=== PATIENT | male | born 1955 | race Caucasian/White ===

== ENCOUNTER 2019-09-06 22:19 | Emergency (ER) | payer MEDICARE ==
[~2019-09-06] VITALS: Ht 180.3 cm; Wt 99.8 kg
[2019-09-06] MEDS ORDERED: GABA300 (22:53)
[2019-09-06] MEDS ORDERED: MYCO250 (22:53)
[2019-09-06] MEDS ORDERED: TORSE20 (22:53)
[2019-09-06] MEDS ORDERED: TACR1 (22:53)
[2019-09-06] MEDS ORDERED: PRED5 (22:54)
[2019-09-06] MEDS ORDERED: FERSU300 (22:54)
[2019-09-06] MEDS ORDERED: WARF4 (22:54)
[2019-09-06] MEDS ORDERED: METO50ER (22:54)
[2019-09-06] MEDS ORDERED: ZOLP10 (22:54)
[2019-09-06] MEDS ORDERED: CLON1 (22:55)
[2019-09-06] MEDS ORDERED: TAMS.4ER (22:55)
[2019-09-06] MEDS ORDERED: INSULANPEN (22:55)
[2019-09-06] MEDS ORDERED: CEPH500 PO (22:57)
== END 2019-09-06 23:29 | disposition home or self-care (01) ==
LOC: ER 22:19
DX: S90.415A Abrasion, left lesser toe(s), initial encounter (principal); S90.425A Blister (nonthermal), left lesser toe(s), initial encounter; E11.621 Type 2 diabetes mellitus with foot ulcer; L97.529 Non-pressure chronic ulcer of other part of left foot with unspecified severity; E11.40 Type 2 diabetes mellitus with diabetic neuropathy, unspecified; Z88.8 Allergy status to other drugs, medicaments and biological substances; E11.9 Type 2 diabetes mellitus without complications; I10 Essential (primary) hypertension; Z86.711 Personal history of pulmonary embolism; Z86.718 Personal history of other venous thrombosis and embolism; Z89.422 Acquired absence of other left toe(s); X58.XXXA Exposure to other specified factors, initial encounter
CPT/HCPCS: 99283; A9270-GY

== ENCOUNTER 2019-09-09 14:32 | Emergency (ER) | payer MEDICARE ==
[~2019-09-09] VITALS: Ht 180.3 cm; Wt 99.8 kg
[~2019-09-09 14:32] MED LIST: CEPH500 PO; CLON1; FERSU300; GABA300; INSULANPEN; METO50ER; MYCO250; PRED5; TACR1; TAMS.4ER; TORSE20; WARF4; ZOLP10
[2019-09-09 15:25] LABS: BASOPHILS ABSOLUTE AUTO 0.03 K/mm3 (0.00-0.23); BASOPHILS PERCENT AUTO 1 % (0-2); EOSINOPHILS ABSOLUTE AUTO 0.14 K/mm3 (0.00-0.68); EOSINOPHILS PERCENT AUTO 3 % (0-6); Hematocrit 42.6 % (37.0-53.0); Hemoglobin 13.9 g/dL (13.5-17.5); IMMATURE GRAN ABSOLUTE AUTO 0.01 K/mm3 (0.00-0.10); IMMATURE GRAN PERCENT AUTO 0 % (0-1); LYMPHOCYTES ABSOLUTE AUTO 1.42 K/mm3 (0.84-5.20); LYMPHOCYTES PERCENT AUTO 27 % (21-46); MONOCYTES ABSOLUTE AUTO 0.68 K/mm3 (0.16-1.47); MONOCYTES PERCENT AUTO 13 % (4-13); Mean Corpuscular HGB 29.4 pg (26.0-34.0); Mean Corpuscular HGB Conc 32.6 g/dL (31.5-36.5); Mean Corpuscular Volume 90 fL (80-100); Mean Platelet Volume 10.8 fL (9.1-12.4); NEUTROPHILS ABSOLUTE AUTO 2.93 K/mm3 (1.96-9.15); NEUTROPHILS PERCENT AUTO 56 % (41-73); Platelet Count 128 K/mm3 (150-400); RDW Coefficient Variation 12.3 % (11.7-14.2); RDW Standard Deviation 40.4 fL (35.1-46.3); Red Blood Cell Count 4.73 M/mm3 (4.30-5.90); White Blood Cell Count 5.21 K/mm3 (4.00-11.30)
[2019-09-09 15:39] LABS: Albumin, Blood 3.6 g/dL (3.4-5.0); Albumin/Globulin Ratio 0.9 (0.8-1.8); Bilirubin, Total 0.8 mg/dL (0.1-1.0); Creatinine, Blood 1.29 mg/dL (0.60-1.20); Globulin, Blood 3.8 g/dL (2.2-4.0); Potassium, Blood 3.8 mmol/L (3.5-5.5); Total Protein, Blood 7.4 g/dL (6.4-8.2)
[2019-09-09 15:44] LABS: International Normalized Ratio 2.96; Prothrombin Time Results 29.8 Sec (9.7-11.5)
[2019-09-09] MEDS ORDERED: Bactrim Ds Tab1 EACH PO (18:02)
== END 2019-09-09 18:15 | disposition home or self-care (01) ==
LOC: ER 14:32
PROVIDERS: Physician Assistant
DX: L03.116 Cellulitis of left lower limb (principal); E11.9 Type 2 diabetes mellitus without complications; I10 Essential (primary) hypertension; Z88.8 Allergy status to other drugs, medicaments and biological substances; Z88.7 Allergy status to serum and vaccine; Z79.899 Other long term (current) drug therapy; Z79.01 Long term (current) use of anticoagulants; Z79.4 Long term (current) use of insulin; Z86.718 Personal history of other venous thrombosis and embolism; Z86.711 Personal history of pulmonary embolism
CPT/HCPCS: 10060; 36415; 73701; 80053; 83605; 84145; 85025; 85610; 85730; 99284-25; A9270-GY; Q9967

== ENCOUNTER 2020-02-28 14:04 | Emergency (ER) | payer MEDICARE ==
[~2020-02-28] VITALS: Ht 180.3 cm; Wt 105.2 kg
[~2020-02-28 14:04] MED LIST changes: +Bactrim Ds Tab1 EACH PO
[2020-02-28 15:25] LABS: BASOPHILS ABSOLUTE AUTO 0.02 K/mm3 (0.00-0.23); BASOPHILS PERCENT AUTO 0 % (0-2); EOSINOPHILS ABSOLUTE AUTO 0.04 K/mm3 (0.00-0.68); EOSINOPHILS PERCENT AUTO 0 % (0-6); Hematocrit 41.2 % (37.0-53.0); Hemoglobin 13.6 g/dL (13.5-17.5); IMMATURE GRAN ABSOLUTE AUTO 0.03 K/mm3 (0.00-0.10); IMMATURE GRAN PERCENT AUTO 0 % (0-1); LYMPHOCYTES ABSOLUTE AUTO 0.89 K/mm3 (0.84-5.20); LYMPHOCYTES PERCENT AUTO 9 % (21-46); MONOCYTES ABSOLUTE AUTO 0.98 K/mm3 (0.16-1.47); MONOCYTES PERCENT AUTO 10 % (4-13); Mean Corpuscular HGB 29.7 pg (26.0-34.0); Mean Corpuscular Volume 90 fL (80-100); Mean Platelet Volume 11.1 fL (9.1-12.4); NEUTROPHILS ABSOLUTE AUTO 8.16 K/mm3 (1.96-9.15); NEUTROPHILS PERCENT AUTO 81 % (41-73); Platelet Count 160 K/mm3 (150-400); RDW Coefficient Variation 12.1 % (11.7-14.2); RDW Standard Deviation 39.6 fL (35.1-46.3); Red Blood Cell Count 4.58 M/mm3 (4.30-5.90); White Blood Cell Count 10.12 K/mm3 (4.00-11.30)
[2020-02-28 15:41] LABS: Source, Urine Catheter
[2020-02-28 15:41] LABS: International Normalized Ratio 2.4; Prothrombin Time Results 24.4 Sec (9.7-11.5)
[2020-02-28 15:42] LABS: Albumin, Blood 3.5 g/dL (3.4-5.0); Albumin/Globulin Ratio 0.8 (0.8-1.8); Bilirubin, Total 1.6 mg/dL (0.1-1.0); Bun/Creatinine Ratio 23.4 (12.0-20.0); Calcium, Blood 9.4 mg/dL (8.5-10.1); Creatinine, Blood 1.41 mg/dL (0.60-1.20); Globulin, Blood 4.5 g/dL (2.2-4.0)
[2020-02-28 15:48] LABS: Bilirubin, Urine Neg (Neg); Blood, Urine 1+ (Neg); Glucose Qualitative, Urine 4+ (Neg); Ketones, Urine 1+ (Neg); Leukocyte Esterase, Urine Neg (Neg); Nitrite, Urine Neg (Neg); Protein, Urine 2+ (Neg); Urobilinogen, Urine NORM (Normal)
[2020-02-28 16:03] LABS: Appearance, Urine Clear (Clear); Color, Urine Yellow (P-Yellow)
[2020-02-28 16:04] LABS: Amorphous Light (0-Heavy); Bacteria Few /hpf; Mucus Light (0-Heavy); Red Blood Cells, Urine 0-2 /hpf (0-2); Squamous Epithelial Cells Rare /hpf (Few); White Blood Cells, Urine 0-2 /hpf (0-5)
[2020-02-28] MEDS ORDERED: SULTRIDS PO (16:37)
[2020-02-28] MEDS ORDERED: AMOCLA875 PO (16:37)
[2020-02-28] MEDS ORDERED: DOXY100 PO (16:48)
== END 2020-02-28 17:06 | disposition home or self-care (01) ==
LOC: ER 14:04
PROVIDERS: Physician Assistant
DX: L03.116 Cellulitis of left lower limb (principal); E11.65 Type 2 diabetes mellitus with hyperglycemia; Z88.8 Allergy status to other drugs, medicaments and biological substances; Z88.7 Allergy status to serum and vaccine; Z79.899 Other long term (current) drug therapy; Z79.01 Long term (current) use of anticoagulants; I10 Essential (primary) hypertension; Z86.711 Personal history of pulmonary embolism; Z86.718 Personal history of other venous thrombosis and embolism
CPT/HCPCS: 36415; 73630; 80053; 80197; 81001; 82947; 83605; 85025; 85610; 85730; 87040; 87086; 93005; 93010; 99284-25; A9270-GY

== ENCOUNTER → 2020-06-19 | Outpatient (CLI) | payer MEDICARE ==
[~2020-06-19] MED LIST changes: +AMOCLA875 PO; +DOXY100 PO; +SULTRIDS PO
== END | disposition home or self-care (01) ==
LOC: LAB 14:43 → LAB SHORT 14:43
DX: A09 Infectious gastroenteritis and colitis, unspecified (principal)
CPT/HCPCS: 83993; 87493

== ENCOUNTER → 2020-07-23 | Outpatient (CLI) | payer MEDICARE ==
[~2020-07-23] MED LIST changes: +ALENDRONATE SOD35 MG PO; +Amlodipine Bes2.5 MG PO; +BUME1 PO; +CALCIUM CARBON500 M4 PO; -CLON1; +CLON1 PO; +FERSU300 PO; -GABA300; +GABA300 PO; -INSULANPEN; +LANTUS SOL100 UNIT/1 SC; +MAGNESIUM OXID500 MG PO; +METO25 PO; +METOPROLOL SUCC25 MG PO; +MYCO250 PO; +NOVOLOG FL100 UNIT/3 SC; -PRED5; +PRED5 PO; -TACR1; +TACR1 PO; +VITAMIN D3-ALO1 EACH PO; -WARF4; +WARF4 PO; -ZOLP10; +ZOLP10 PO
== END ==
LOC: LAB SHORT 11:19 → PLD 11:19
DX: L02.619 Cutaneous abscess of unspecified foot (principal)
CPT/HCPCS: 87070; 87075; 87205

== ENCOUNTER 2020-08-23 09:03 | Day surgery (SDC) | payer MEDICARE ==
[~2020-08-23] VITALS: Ht 180.3 cm; Wt 106.9 kg
[~2020-08-23 09:03] MED LIST changes: -ALENDRONATE SOD35 MG PO; -Amlodipine Bes2.5 MG PO; -BUME1 PO; -CALCIUM CARBON500 M4 PO; -FERSU300 PO; -MAGNESIUM OXID500 MG PO; -METO25 PO; -METOPROLOL SUCC25 MG PO; -MYCO250 PO; -NOVOLOG FL100 UNIT/3 SC; -VITAMIN D3-ALO1 EACH PO
--- NOTE | 2020-08-23 10:06 | NUR ---
08/23/20 1006 Pat Vaca FIRST IV IN RIGHT HAND MISSED SECOND IV IN RIGHT HAND WORKED
[2020-12-23] MEDS ORDERED: VITAMIN D3-ALO1 EACH PO (14:46)
[2020-12-23] MEDS ORDERED: MAGNESIUM OXID500 MG PO (14:48)
[2020-12-23] MEDS ORDERED: METO25 PO (14:48)
[2020-12-23] MEDS ORDERED: CALCIUM CARBON500 M4 PO (14:49)
[2020-12-23] MEDS ORDERED: NOVOLOG FL100 UNIT/3 SC (14:49)
[2020-12-23] MEDS ORDERED: FERSU300 PO (14:49)
[2020-12-23] MEDS ORDERED: Amlodipine Bes2.5 MG PO (14:50)
[2020-12-23] MEDS ORDERED: ALENDRONATE SOD35 MG PO (14:51)
== END 2020-08-23 11:37 | disposition home or self-care (01) ==
LOC: ORSCSDS 09:03
PROVIDERS: Internal Medicine Gastroenterology
PROC: 0DBK8ZX Excision of Ascending Colon, Via Natural or Artificial Opening Endoscopic, Diagnostic (ICD-10-PCS; principal; 2020-08-23 10:15)
PROC: 0DBP8ZX Excision of Rectum, Via Natural or Artificial Opening Endoscopic, Diagnostic (ICD-10-PCS; principal; 2020-08-23 10:15)
DX: R19.4 Change in bowel habit (principal); Z86.010 Personal history of colon polyps; D12.2 Benign neoplasm of ascending colon; K62.1 Rectal polyp; K64.8 Other hemorrhoids; K57.30 Diverticulosis of large intestine without perforation or abscess without bleeding; E11.9 Type 2 diabetes mellitus without complications; Z79.01 Long term (current) use of anticoagulants; Z79.4 Long term (current) use of insulin; Z79.899 Other long term (current) drug therapy
CPT/HCPCS: 82947; 88305; J2704; J7120

== ENCOUNTER 2020-12-24 06:29 | Day surgery (SDC) | payer MEDICARE ==
[~2020-12-24] VITALS: Ht 180.3 cm; Wt 104.5 kg
[~2020-12-24 06:29] MED LIST changes: +ALENDRONATE SOD35 MG PO; +Amlodipine Bes2.5 MG PO; +CALCIUM CARBON500 M4 PO; +FERSU300 PO; +MAGNESIUM OXID500 MG PO; +METO25 PO; +NOVOLOG FL100 UNIT/3 SC; +VITAMIN D3-ALO1 EACH PO
[2020-12-24] MEDS ORDERED: BUME1 PO (07:25)
[2020-12-24] MEDS ORDERED: MYCO250 PO (07:28)
[2020-12-24] MEDS ORDERED: METOPROLOL SUCC25 MG PO (11:27)
--- NOTE | 2020-12-24 12:25 | NUR ---
DISCHARGE PT AMBULATES TO RESTROOM AND DRESSED SELF WITH NO COMPLICATIONS. PT R FEMORAL SITE WITH NO BLEEDING, OOZING OR HEMATOMA NOTED. PT DENIES ANY PAIN. PT STATES HIS UNDERSTANDING OF SITE CARE AND DISCHARGE INSTRUCTIONS AND DENIES ANY QUESTIONS OR CONCERNS. PTS VSS REMAIN STABLE. IV DCD WITH CATH INTACT. PT TAKEN TO EXIT VIA WHEELCHAIR BY ANOTHER RN.
== END 2020-12-24 11:36 | disposition home or self-care (01) ==
LOC: MHTC 06:29
DX: E11.51 Type 2 diabetes mellitus with diabetic peripheral angiopathy without gangrene (principal); I70.213 Atherosclerosis of native arteries of extremities with intermittent claudication, bilateral legs; E11.621 Type 2 diabetes mellitus with foot ulcer; L97.529 Non-pressure chronic ulcer of other part of left foot with unspecified severity; E11.22 Type 2 diabetes mellitus with diabetic chronic kidney disease; I12.9 Hypertensive chronic kidney disease with stage 1 through stage 4 chronic kidney disease, or unspecified chronic kidney disease; N18.30 Chronic kidney disease, stage 3 unspecified; E78.5 Hyperlipidemia, unspecified; I48.92 Unspecified atrial flutter; E66.9 Obesity, unspecified; M81.0 Age-related osteoporosis without current pathological fracture; E11.42 Type 2 diabetes mellitus with diabetic polyneuropathy; Z94.0 Kidney transplant status; Z86.718 Personal history of other venous thrombosis and embolism; Z86.711 Personal history of pulmonary embolism; Z79.01 Long term (current) use of anticoagulants; Z88.8 Allergy status to other drugs, medicaments and biological substances; Z79.4 Long term (current) use of insulin; Z68.33 Body mass index [BMI] 33.0-33.9, adult; Z79.82 Long term (current) use of aspirin
CPT/HCPCS: 37228; 37232; 75716; 75774; 76937; 82947; 99152; 99153; C1725; C1760; C1769; C1887; C1894; J1644; J2060; J2250; J3010; J7030; J7050; Q9967

== ENCOUNTER 2021-01-09 04:01 | Day surgery (SDC) | payer MEDICARE | END 2021-01-09 22:47 | disposition home or self-care (01) | LOC: WOUND 04:01 | DX: E11.621 Type 2 diabetes mellitus with foot ulcer (principal); L97.512 Non-pressure chronic ulcer of other part of right foot with fat layer exposed; L97.522 Non-pressure chronic ulcer of other part of left foot with fat layer exposed; M79.672 Pain in left foot; R93.6 Abnormal findings on diagnostic imaging of limbs | CPT/HCPCS: A9270; G0463 ==

== ENCOUNTER → 2021-01-09 | Outpatient (CLI) | payer MEDICARE ==
[~2021-01-09] MED LIST changes: +BUME1 PO; +METOPROLOL SUCC25 MG PO; +MYCO250 PO
[2021-01-09 21:29] LABS: Microalbumin, Urine Quant. <5.000 mg/L (0.000-20.000)
== END ==
LOC: PLD 12:00 → LAB SHORT 12:00
PROVIDERS: Internal Medicine Nephrology
DX: N18.30 Chronic kidney disease, stage 3 unspecified (principal); D63.1 Anemia in chronic kidney disease; N25.81 Secondary hyperparathyroidism of renal origin; E55.9 Vitamin D deficiency, unspecified; E78.00 Pure hypercholesterolemia, unspecified; R76.9 Abnormal immunological finding in serum, unspecified; R94.5 Abnormal results of liver function studies; G60.9 Hereditary and idiopathic neuropathy, unspecified
CPT/HCPCS: 81050; 82043; 82570; 84156

== ENCOUNTER 2021-01-16 04:11 | Day surgery (SDC) | payer MEDICARE | END 2021-01-16 23:14 | disposition home or self-care (01) | LOC: WOUND | DX: E11.621 Type 2 diabetes mellitus with foot ulcer (principal); L97.522 Non-pressure chronic ulcer of other part of left foot with fat layer exposed; L97.512 Non-pressure chronic ulcer of other part of right foot with fat layer exposed; L97.422 Non-pressure chronic ulcer of left heel and midfoot with fat layer exposed; R93.6 Abnormal findings on diagnostic imaging of limbs; E11.42 Type 2 diabetes mellitus with diabetic polyneuropathy; I87.2 Venous insufficiency (chronic) (peripheral) | CPT/HCPCS: 87071; 87075; 87077; 87186; 87205; A9270 ==

== ENCOUNTER 2021-01-23 00:24 | Day surgery (SDC) | payer MEDICARE | END 2021-01-23 22:47 | disposition home or self-care (01) | LOC: WOUND 00:24 | DX: E11.621 Type 2 diabetes mellitus with foot ulcer (principal); L97.512 Non-pressure chronic ulcer of other part of right foot with fat layer exposed; L97.522 Non-pressure chronic ulcer of other part of left foot with fat layer exposed; L97.425 Non-pressure chronic ulcer of left heel and midfoot with muscle involvement without evidence of necrosis; L97.429 Non-pressure chronic ulcer of left heel and midfoot with unspecified severity; M79.672 Pain in left foot; R93.6 Abnormal findings on diagnostic imaging of limbs; E11.42 Type 2 diabetes mellitus with diabetic polyneuropathy; I87.2 Venous insufficiency (chronic) (peripheral) | CPT/HCPCS: A9270 ==

== ENCOUNTER → 2021-01-28 | Outpatient (CLI) | payer MEDICARE ==
[2021-01-28 15:08] LABS: BASOPHILS ABSOLUTE AUTO 0.03 K/mm3 (0.00-0.23); BASOPHILS PERCENT AUTO 0 % (0-2); EOSINOPHILS ABSOLUTE AUTO 0.21 K/mm3 (0.00-0.68); EOSINOPHILS PERCENT AUTO 3 % (0-6); Hematocrit 39.2 % (37.0-53.0); Hemoglobin 12.4 g/dL (13.5-17.5); IMMATURE GRAN ABSOLUTE AUTO 0.01 K/mm3 (0.00-0.10); IMMATURE GRAN PERCENT AUTO 0 % (0-1); LYMPHOCYTES PERCENT AUTO 20 % (21-46); MONOCYTES ABSOLUTE AUTO 0.89 K/mm3 (0.16-1.47); MONOCYTES PERCENT AUTO 13 % (4-13); Mean Corpuscular HGB 28.4 pg (26.0-34.0); Mean Corpuscular HGB Conc 31.6 g/dL (31.5-36.5); Mean Corpuscular Volume 90 fL (80-100); Mean Platelet Volume 10.2 fL (9.1-12.4); NEUTROPHILS ABSOLUTE AUTO 4.39 K/mm3 (1.96-9.15); NEUTROPHILS PERCENT AUTO 64 % (41-73); Platelet Count 186 K/mm3 (150-400); RDW Coefficient Variation 12.8 % (11.7-14.2); Red Blood Cell Count 4.36 M/mm3 (4.30-5.90); White Blood Cell Count 6.93 K/mm3 (4.00-11.30)
[2021-01-28 15:29] LABS: International Normalized Ratio 2.5; Prothrombin Time Results 25.6 Sec (9.7-11.5)
[2021-01-28 16:19] LABS: Albumin, Blood 3.5 g/dL (3.4-5.0); Albumin/Globulin Ratio 0.8 (0.8-1.8); Bilirubin, Direct 0.2 mg/dL (0.0-0.3); Bilirubin, Indirect 0.5 mg/dL (0.1-0.7); Bilirubin, Total 0.7 mg/dL (0.1-1.0); Bun/Creatinine Ratio 13.8 (12.0-20.0); Calcium, Blood 9.2 mg/dL (8.5-10.1); Creatinine, Blood 1.95 mg/dL (0.60-1.20); Globulin, Blood 4.5 g/dL (2.2-4.0); Phosphorus, Blood 3.8 mg/dL (2.5-4.9); Potassium, Blood 4.3 mmol/L (3.5-5.5)
== END | disposition home or self-care (01) ==
LOC: LAB SHORT 14:10 → LAB 14:10 → EDSTATUS 01-07 17:05 → LAB FUT 01-07 17:05
PROVIDERS: Family Medicine; Internal Medicine Nephrology
DX: Z79.01 Long term (current) use of anticoagulants (principal); Z51.81 Encounter for therapeutic drug level monitoring; N18.30 Chronic kidney disease, stage 3 unspecified; D63.1 Anemia in chronic kidney disease; N25.81 Secondary hyperparathyroidism of renal origin; E55.9 Vitamin D deficiency, unspecified; E78.00 Pure hypercholesterolemia, unspecified; R76.9 Abnormal immunological finding in serum, unspecified; R94.5 Abnormal results of liver function studies; G60.9 Hereditary and idiopathic neuropathy, unspecified
CPT/HCPCS: 36415; 80053; 82248; 84100; 85025; 85610

== ENCOUNTER 2021-01-30 02:23 | Day surgery (SDC) | payer MEDICARE | END 2021-01-30 23:11 | disposition home or self-care (01) | LOC: WOUND 02:23 | DX: E11.621 Type 2 diabetes mellitus with foot ulcer (principal); L97.425 Non-pressure chronic ulcer of left heel and midfoot with muscle involvement without evidence of necrosis; L97.512 Non-pressure chronic ulcer of other part of right foot with fat layer exposed; L97.522 Non-pressure chronic ulcer of other part of left foot with fat layer exposed; R93.6 Abnormal findings on diagnostic imaging of limbs; E11.42 Type 2 diabetes mellitus with diabetic polyneuropathy; I87.2 Venous insufficiency (chronic) (peripheral); Z88.7 Allergy status to serum and vaccine; Z87.891 Personal history of nicotine dependence | CPT/HCPCS: A9270 ==

== ENCOUNTER 2021-02-06 01:26 | Day surgery (SDC) | payer MEDICARE | END 2021-02-06 23:36 | disposition home or self-care (01) | LOC: WOUND 01:26 | DX: E11.621 Type 2 diabetes mellitus with foot ulcer (principal); L97.425 Non-pressure chronic ulcer of left heel and midfoot with muscle involvement without evidence of necrosis; L97.512 Non-pressure chronic ulcer of other part of right foot with fat layer exposed; L97.522 Non-pressure chronic ulcer of other part of left foot with fat layer exposed; R93.6 Abnormal findings on diagnostic imaging of limbs; E11.42 Type 2 diabetes mellitus with diabetic polyneuropathy; I87.2 Venous insufficiency (chronic) (peripheral) | CPT/HCPCS: A9270 ==

== ENCOUNTER 2021-02-20 00:23 | Day surgery (SDC) | payer MEDICARE | END 2021-02-20 22:43 | disposition home or self-care (01) | LOC: WOUND 00:23 | DX: E11.621 Type 2 diabetes mellitus with foot ulcer (principal); L97.425 Non-pressure chronic ulcer of left heel and midfoot with muscle involvement without evidence of necrosis; L97.521 Non-pressure chronic ulcer of other part of left foot limited to breakdown of skin; M79.672 Pain in left foot; R93.6 Abnormal findings on diagnostic imaging of limbs; E11.42 Type 2 diabetes mellitus with diabetic polyneuropathy; I87.2 Venous insufficiency (chronic) (peripheral); Z88.8 Allergy status to other drugs, medicaments and biological substances; Z88.7 Allergy status to serum and vaccine ==

== ENCOUNTER 2021-02-27 02:10 | Day surgery (SDC) | payer MEDICARE | END 2021-02-27 22:40 | disposition home or self-care (01) | LOC: WOUND 02:10 | DX: E11.621 Type 2 diabetes mellitus with foot ulcer (principal); L97.425 Non-pressure chronic ulcer of left heel and midfoot with muscle involvement without evidence of necrosis; M79.672 Pain in left foot; E11.42 Type 2 diabetes mellitus with diabetic polyneuropathy; I87.2 Venous insufficiency (chronic) (peripheral); Z88.8 Allergy status to other drugs, medicaments and biological substances; Z88.7 Allergy status to serum and vaccine | CPT/HCPCS: A9270 ==

== ENCOUNTER 2021-03-06 02:02 | Day surgery (SDC) | payer MEDICARE | END 2021-03-06 23:00 | disposition home or self-care (01) | LOC: WOUND 02:02 | DX: E11.621 Type 2 diabetes mellitus with foot ulcer (principal); L97.425 Non-pressure chronic ulcer of left heel and midfoot with muscle involvement without evidence of necrosis; R93.6 Abnormal findings on diagnostic imaging of limbs; E11.42 Type 2 diabetes mellitus with diabetic polyneuropathy; I87.2 Venous insufficiency (chronic) (peripheral) | CPT/HCPCS: A9270; G0463 ==

== ENCOUNTER 2021-03-13 08:00 | Day surgery (SDC) | payer MEDICARE | END 2021-03-13 23:59 | disposition home or self-care (01) | LOC: WOUND | DX: E11.621 Type 2 diabetes mellitus with foot ulcer (principal); L97.425 Non-pressure chronic ulcer of left heel and midfoot with muscle involvement without evidence of necrosis; M79.672 Pain in left foot; R93.6 Abnormal findings on diagnostic imaging of limbs; E11.42 Type 2 diabetes mellitus with diabetic polyneuropathy; I87.2 Venous insufficiency (chronic) (peripheral) | CPT/HCPCS: 36415; 80048; 82607; 84443; 85025; 86140; A9270; G0463 ==

== ENCOUNTER 2021-03-20 04:10 | Day surgery (SDC) | payer MEDICARE | END 2021-03-20 23:29 | disposition home or self-care (01) | LOC: WOUND 04:10 | DX: E11.621 Type 2 diabetes mellitus with foot ulcer (principal); L97.425 Non-pressure chronic ulcer of left heel and midfoot with muscle involvement without evidence of necrosis; M79.672 Pain in left foot; R93.6 Abnormal findings on diagnostic imaging of limbs; E11.42 Type 2 diabetes mellitus with diabetic polyneuropathy; I87.2 Venous insufficiency (chronic) (peripheral); Z88.8 Allergy status to other drugs, medicaments and biological substances; Z88.7 Allergy status to serum and vaccine | CPT/HCPCS: A9270; G0463 ==

== ENCOUNTER 2021-03-27 01:55 | Day surgery (SDC) | payer MEDICARE | END 2021-03-27 23:30 | disposition home or self-care (01) | LOC: WOUND 01:55 | DX: E11.621 Type 2 diabetes mellitus with foot ulcer (principal); L97.425 Non-pressure chronic ulcer of left heel and midfoot with muscle involvement without evidence of necrosis; E11.42 Type 2 diabetes mellitus with diabetic polyneuropathy; I87.2 Venous insufficiency (chronic) (peripheral); I89.0 Lymphedema, not elsewhere classified; Z88.7 Allergy status to serum and vaccine; Z88.8 Allergy status to other drugs, medicaments and biological substances | CPT/HCPCS: A9270 ==

== ENCOUNTER 2021-04-10 01:38 | Day surgery (SDC) | payer MEDICARE | END 2021-04-10 23:03 | disposition home or self-care (01) | LOC: WOUND 01:38 | DX: E11.621 Type 2 diabetes mellitus with foot ulcer (principal); L97.425 Non-pressure chronic ulcer of left heel and midfoot with muscle involvement without evidence of necrosis; R93.6 Abnormal findings on diagnostic imaging of limbs; E11.42 Type 2 diabetes mellitus with diabetic polyneuropathy; I87.2 Venous insufficiency (chronic) (peripheral); Z88.8 Allergy status to other drugs, medicaments and biological substances; Z88.7 Allergy status to serum and vaccine | CPT/HCPCS: A9270 ==

== ENCOUNTER 2021-04-17 03:09 | Day surgery (SDC) | payer MEDICARE | END 2021-04-17 23:13 | disposition home or self-care (01) | LOC: WOUND 03:09 | DX: E11.621 Type 2 diabetes mellitus with foot ulcer (principal); L97.522 Non-pressure chronic ulcer of other part of left foot with fat layer exposed; R93.6 Abnormal findings on diagnostic imaging of limbs; E11.42 Type 2 diabetes mellitus with diabetic polyneuropathy; I87.2 Venous insufficiency (chronic) (peripheral) | CPT/HCPCS: A9270 ==

== ENCOUNTER 2021-04-24 01:10 | Day surgery (SDC) | payer MEDICARE | END 2021-04-24 23:03 | disposition home or self-care (01) | LOC: WOUND 01:10 | DX: E11.621 Type 2 diabetes mellitus with foot ulcer (principal); L97.425 Non-pressure chronic ulcer of left heel and midfoot with muscle involvement without evidence of necrosis; R93.6 Abnormal findings on diagnostic imaging of limbs; E11.42 Type 2 diabetes mellitus with diabetic polyneuropathy; I87.2 Venous insufficiency (chronic) (peripheral) | CPT/HCPCS: A9270 ==

== ENCOUNTER 2021-05-01 00:44 | Day surgery (SDC) | payer MEDICARE | END 2021-05-01 23:02 | disposition home or self-care (01) | LOC: WOUND 00:44 | DX: E11.621 Type 2 diabetes mellitus with foot ulcer (principal); M79.672 Pain in left foot; R93.6 Abnormal findings on diagnostic imaging of limbs; E11.42 Type 2 diabetes mellitus with diabetic polyneuropathy; I87.2 Venous insufficiency (chronic) (peripheral) | CPT/HCPCS: A9270 ==

== ENCOUNTER 2021-05-08 01:54 | Day surgery (SDC) | payer MEDICARE | END 2021-05-08 23:57 | disposition home or self-care (01) | LOC: WOUND 01:54 | DX: E11.621 Type 2 diabetes mellitus with foot ulcer (principal); L97.425 Non-pressure chronic ulcer of left heel and midfoot with muscle involvement without evidence of necrosis; M79.672 Pain in left foot; R93.6 Abnormal findings on diagnostic imaging of limbs; E11.42 Type 2 diabetes mellitus with diabetic polyneuropathy; I87.2 Venous insufficiency (chronic) (peripheral); Z88.8 Allergy status to other drugs, medicaments and biological substances; Z88.7 Allergy status to serum and vaccine | CPT/HCPCS: A9270 ==

== ENCOUNTER 2021-05-14 08:19 | Day surgery (SDC) | payer MEDICARE ==
[~2021-05-14] VITALS: Ht 180.3 cm; Wt 100.8 kg
[2021-05-14] MEDS ORDERED: ALOGLIPTIN6.25 M1 (08:43)
== END 2021-05-14 10:05 | disposition home or self-care (01) ==
LOC: ORSCSDS 08:19
PROVIDERS: Internal Medicine Gastroenterology
PROC: 0DB68ZX Excision of Stomach, Via Natural or Artificial Opening Endoscopic, Diagnostic (ICD-10-PCS; principal; 2021-05-14 09:30)
DX: R11.2 Nausea with vomiting, unspecified (principal); R10.13 Epigastric pain; R68.81 Early satiety; K44.9 Diaphragmatic hernia without obstruction or gangrene; K20.90 Esophagitis, unspecified without bleeding; R19.4 Change in bowel habit; F41.8 Other specified anxiety disorders; Z86.718 Personal history of other venous thrombosis and embolism; E11.22 Type 2 diabetes mellitus with diabetic chronic kidney disease; I12.9 Hypertensive chronic kidney disease with stage 1 through stage 4 chronic kidney disease, or unspecified chronic kidney disease; N18.30 Chronic kidney disease, stage 3 unspecified; Z94.0 Kidney transplant status; Z79.01 Long term (current) use of anticoagulants; Z79.4 Long term (current) use of insulin; Z79.899 Other long term (current) drug therapy
CPT/HCPCS: 82947; 88305; 88342; J2704; J7120

== ENCOUNTER 2021-05-22 00:52 | Day surgery (SDC) | payer MEDICARE ==
[~2021-05-22 00:52] MED LIST changes: +ALOGLIPTIN6.25 M1
== END 2021-05-22 23:20 | disposition home or self-care (01) ==
LOC: WOUND 00:52
DX: E11.621 Type 2 diabetes mellitus with foot ulcer (principal); L97.425 Non-pressure chronic ulcer of left heel and midfoot with muscle involvement without evidence of necrosis; R93.6 Abnormal findings on diagnostic imaging of limbs; E11.42 Type 2 diabetes mellitus with diabetic polyneuropathy; I87.2 Venous insufficiency (chronic) (peripheral); E11.51 Type 2 diabetes mellitus with diabetic peripheral angiopathy without gangrene

== ENCOUNTER 2021-05-28 00:30 | Day surgery (SDC) | payer MEDICARE | END 2021-05-28 23:01 | disposition home or self-care (01) | LOC: WOUND 00:30 | DX: E11.621 Type 2 diabetes mellitus with foot ulcer (principal); L97.522 Non-pressure chronic ulcer of other part of left foot with fat layer exposed; R93.6 Abnormal findings on diagnostic imaging of limbs; E11.42 Type 2 diabetes mellitus with diabetic polyneuropathy; I87.2 Venous insufficiency (chronic) (peripheral); E11.51 Type 2 diabetes mellitus with diabetic peripheral angiopathy without gangrene; Z88.1 Allergy status to other antibiotic agents; Z88.7 Allergy status to serum and vaccine | CPT/HCPCS: A9270 ==

== ENCOUNTER 2021-06-05 08:00 | Day surgery (SDC) | payer MEDICARE | END 2021-06-05 23:59 | disposition home or self-care (01) | LOC: WOUND 08:00 | DX: E11.621 Type 2 diabetes mellitus with foot ulcer (principal); L97.425 Non-pressure chronic ulcer of left heel and midfoot with muscle involvement without evidence of necrosis; L97.529 Non-pressure chronic ulcer of other part of left foot with unspecified severity; M79.672 Pain in left foot; R93.6 Abnormal findings on diagnostic imaging of limbs; E11.42 Type 2 diabetes mellitus with diabetic polyneuropathy; I87.2 Venous insufficiency (chronic) (peripheral); E11.51 Type 2 diabetes mellitus with diabetic peripheral angiopathy without gangrene; Z88.8 Allergy status to other drugs, medicaments and biological substances; Z88.7 Allergy status to serum and vaccine ==

== ENCOUNTER 2021-06-10 01:29 | Day surgery (SDC) | payer MEDICARE | END 2021-06-10 22:43 | disposition home or self-care (01) | LOC: WOUND 01:29 | DX: E11.621 Type 2 diabetes mellitus with foot ulcer (principal); L97.422 Non-pressure chronic ulcer of left heel and midfoot with fat layer exposed; R93.6 Abnormal findings on diagnostic imaging of limbs; E11.42 Type 2 diabetes mellitus with diabetic polyneuropathy; I87.2 Venous insufficiency (chronic) (peripheral); E11.51 Type 2 diabetes mellitus with diabetic peripheral angiopathy without gangrene | CPT/HCPCS: A9270; G0463 ==

== ENCOUNTER 2021-06-17 03:28 | Day surgery (SDC) | payer MEDICARE | END 2021-06-17 23:38 | disposition home or self-care (01) | LOC: WOUND 03:28 | DX: E11.621 Type 2 diabetes mellitus with foot ulcer (principal); L97.422 Non-pressure chronic ulcer of left heel and midfoot with fat layer exposed; R93.6 Abnormal findings on diagnostic imaging of limbs; E11.42 Type 2 diabetes mellitus with diabetic polyneuropathy; I87.2 Venous insufficiency (chronic) (peripheral); E11.51 Type 2 diabetes mellitus with diabetic peripheral angiopathy without gangrene; Z86.31 Personal history of diabetic foot ulcer | CPT/HCPCS: A9270 ==

== ENCOUNTER 2021-06-24 05:34 | Day surgery (SDC) | payer MEDICARE | END 2021-06-24 22:43 | disposition home or self-care (01) | LOC: WOUND 05:34 | DX: E11.621 Type 2 diabetes mellitus with foot ulcer (principal); L97.522 Non-pressure chronic ulcer of other part of left foot with fat layer exposed; R93.6 Abnormal findings on diagnostic imaging of limbs; E11.42 Type 2 diabetes mellitus with diabetic polyneuropathy; I87.2 Venous insufficiency (chronic) (peripheral); E11.51 Type 2 diabetes mellitus with diabetic peripheral angiopathy without gangrene | CPT/HCPCS: A9270 ==

== ENCOUNTER 2021-07-01 03:02 | Day surgery (SDC) | payer MEDICARE | END 2021-07-01 22:48 | disposition home or self-care (01) | LOC: WOUND 03:02 | DX: E11.621 Type 2 diabetes mellitus with foot ulcer (principal); L97.425 Non-pressure chronic ulcer of left heel and midfoot with muscle involvement without evidence of necrosis; R93.6 Abnormal findings on diagnostic imaging of limbs; E11.42 Type 2 diabetes mellitus with diabetic polyneuropathy | CPT/HCPCS: A9270; G0463 ==

== ENCOUNTER 2021-07-09 00:31 | Day surgery (SDC) | payer MEDICARE | END 2021-07-09 23:13 | disposition home or self-care (01) | LOC: WOUND 00:31 | DX: E11.621 Type 2 diabetes mellitus with foot ulcer (principal); L97.422 Non-pressure chronic ulcer of left heel and midfoot with fat layer exposed; R93.6 Abnormal findings on diagnostic imaging of limbs; E11.42 Type 2 diabetes mellitus with diabetic polyneuropathy; I87.2 Venous insufficiency (chronic) (peripheral); E11.51 Type 2 diabetes mellitus with diabetic peripheral angiopathy without gangrene | CPT/HCPCS: A9270; G0463 ==

== ENCOUNTER 2021-07-16 03:06 | Day surgery (SDC) | payer MEDICARE | END 2021-07-16 23:06 | disposition home or self-care (01) | LOC: WOUND 03:06 | DX: E11.621 Type 2 diabetes mellitus with foot ulcer (principal); L97.422 Non-pressure chronic ulcer of left heel and midfoot with fat layer exposed; R93.6 Abnormal findings on diagnostic imaging of limbs; E11.42 Type 2 diabetes mellitus with diabetic polyneuropathy; I87.2 Venous insufficiency (chronic) (peripheral); E11.51 Type 2 diabetes mellitus with diabetic peripheral angiopathy without gangrene | CPT/HCPCS: A9270; G0463 ==

== ENCOUNTER 2021-08-06 05:14 | Day surgery (SDC) | payer MEDICARE | END 2021-08-06 23:41 | disposition home or self-care (01) | LOC: WOUND 05:14 | DX: E11.621 Type 2 diabetes mellitus with foot ulcer (principal); L97.422 Non-pressure chronic ulcer of left heel and midfoot with fat layer exposed; R93.6 Abnormal findings on diagnostic imaging of limbs; E11.42 Type 2 diabetes mellitus with diabetic polyneuropathy; I87.2 Venous insufficiency (chronic) (peripheral); E11.51 Type 2 diabetes mellitus with diabetic peripheral angiopathy without gangrene | CPT/HCPCS: A9270; G0463 ==

== ENCOUNTER 2021-08-20 00:37 | Day surgery (SDC) | payer MEDICARE | END 2021-08-20 22:49 | disposition home or self-care (01) | LOC: WOUND 00:37 | DX: E11.621 Type 2 diabetes mellitus with foot ulcer (principal); L97.422 Non-pressure chronic ulcer of left heel and midfoot with fat layer exposed; E11.51 Type 2 diabetes mellitus with diabetic peripheral angiopathy without gangrene; E11.42 Type 2 diabetes mellitus with diabetic polyneuropathy; I87.2 Venous insufficiency (chronic) (peripheral); R93.6 Abnormal findings on diagnostic imaging of limbs | CPT/HCPCS: A9270; G0463 ==

== ENCOUNTER 2021-08-27 01:20 | Day surgery (SDC) | payer MEDICARE | END 2021-08-27 23:04 | disposition home or self-care (01) | LOC: WOUND 01:20 | DX: E11.621 Type 2 diabetes mellitus with foot ulcer (principal); L97.522 Non-pressure chronic ulcer of other part of left foot with fat layer exposed; L97.422 Non-pressure chronic ulcer of left heel and midfoot with fat layer exposed; E11.42 Type 2 diabetes mellitus with diabetic polyneuropathy; E11.51 Type 2 diabetes mellitus with diabetic peripheral angiopathy without gangrene; R93.6 Abnormal findings on diagnostic imaging of limbs; I87.2 Venous insufficiency (chronic) (peripheral); R59.1 Generalized enlarged lymph nodes | CPT/HCPCS: A9270 ==

== ENCOUNTER 2021-09-03 03:16 | Day surgery (SDC) | payer MEDICARE | END 2021-09-04 02:21 | disposition home or self-care (01) | LOC: WOUND 03:16 | DX: E11.621 Type 2 diabetes mellitus with foot ulcer (principal); L97.522 Non-pressure chronic ulcer of other part of left foot with fat layer exposed; L97.422 Non-pressure chronic ulcer of left heel and midfoot with fat layer exposed; R93.6 Abnormal findings on diagnostic imaging of limbs; E11.42 Type 2 diabetes mellitus with diabetic polyneuropathy; I87.2 Venous insufficiency (chronic) (peripheral); E11.51 Type 2 diabetes mellitus with diabetic peripheral angiopathy without gangrene | CPT/HCPCS: A9270; G0463 ==

== ENCOUNTER 2021-09-10 00:42 | Day surgery (SDC) | payer MEDICARE | END 2021-09-10 23:32 | disposition home or self-care (01) | LOC: WOUND 00:42 | DX: E11.621 Type 2 diabetes mellitus with foot ulcer (principal); L97.522 Non-pressure chronic ulcer of other part of left foot with fat layer exposed; E11.42 Type 2 diabetes mellitus with diabetic polyneuropathy; E11.51 Type 2 diabetes mellitus with diabetic peripheral angiopathy without gangrene; I87.2 Venous insufficiency (chronic) (peripheral) | CPT/HCPCS: G0463 ==

== ENCOUNTER 2021-09-17 00:12 | Day surgery (SDC) | payer MEDICARE | END 2021-09-17 23:20 | disposition home or self-care (01) | LOC: WOUND 00:12 | DX: E11.621 Type 2 diabetes mellitus with foot ulcer (principal); L97.522 Non-pressure chronic ulcer of other part of left foot with fat layer exposed; R93.6 Abnormal findings on diagnostic imaging of limbs; E11.42 Type 2 diabetes mellitus with diabetic polyneuropathy; I87.2 Venous insufficiency (chronic) (peripheral); E11.51 Type 2 diabetes mellitus with diabetic peripheral angiopathy without gangrene; M79.672 Pain in left foot | CPT/HCPCS: G0463 ==

== ENCOUNTER 2021-09-24 00:22 | Day surgery (SDC) | payer MEDICARE | END 2021-09-24 22:46 | disposition home or self-care (01) | LOC: WOUND 00:22 | DX: E11.621 Type 2 diabetes mellitus with foot ulcer (principal); L97.522 Non-pressure chronic ulcer of other part of left foot with fat layer exposed; R93.6 Abnormal findings on diagnostic imaging of limbs; E11.42 Type 2 diabetes mellitus with diabetic polyneuropathy; I87.2 Venous insufficiency (chronic) (peripheral); E11.51 Type 2 diabetes mellitus with diabetic peripheral angiopathy without gangrene; M79.672 Pain in left foot ==

== ENCOUNTER 2021-10-01 01:43 | Day surgery (SDC) | payer MEDICARE | END 2021-10-01 23:18 | disposition home or self-care (01) | LOC: WOUND 01:43 | DX: E11.621 Type 2 diabetes mellitus with foot ulcer (principal); L97.522 Non-pressure chronic ulcer of other part of left foot with fat layer exposed; E11.42 Type 2 diabetes mellitus with diabetic polyneuropathy; E11.51 Type 2 diabetes mellitus with diabetic peripheral angiopathy without gangrene; I87.2 Venous insufficiency (chronic) (peripheral); R93.6 Abnormal findings on diagnostic imaging of limbs | CPT/HCPCS: A9270; G0463 ==

== ENCOUNTER 2021-10-08 03:28 | Day surgery (SDC) | payer MEDICARE | END 2021-10-08 23:00 | disposition home or self-care (01) | LOC: WOUND 03:28 | DX: E11.621 Type 2 diabetes mellitus with foot ulcer (principal); L97.522 Non-pressure chronic ulcer of other part of left foot with fat layer exposed; L97.422 Non-pressure chronic ulcer of left heel and midfoot with fat layer exposed; E11.42 Type 2 diabetes mellitus with diabetic polyneuropathy; I87.2 Venous insufficiency (chronic) (peripheral); E11.51 Type 2 diabetes mellitus with diabetic peripheral angiopathy without gangrene; M79.672 Pain in left foot; R93.6 Abnormal findings on diagnostic imaging of limbs | CPT/HCPCS: A9270; G0463 ==

== ENCOUNTER 2021-10-20 01:37 | Day surgery (SDC) | payer MEDICARE | END 2021-10-20 23:32 | disposition home or self-care (01) | LOC: WOUND 01:37 | DX: E11.621 Type 2 diabetes mellitus with foot ulcer (principal); L97.422 Non-pressure chronic ulcer of left heel and midfoot with fat layer exposed; L97.529 Non-pressure chronic ulcer of other part of left foot with unspecified severity; R93.6 Abnormal findings on diagnostic imaging of limbs; E11.42 Type 2 diabetes mellitus with diabetic polyneuropathy; I87.2 Venous insufficiency (chronic) (peripheral); E11.51 Type 2 diabetes mellitus with diabetic peripheral angiopathy without gangrene; M79.672 Pain in left foot | CPT/HCPCS: G0463 ==

== ENCOUNTER → 2021-10-29 | Outpatient (CLI) | payer MEDICARE ==
[2021-10-29 12:43] LABS: BASOPHILS ABSOLUTE AUTO 0.06 K/mm3 (0.00-0.23); BASOPHILS PERCENT AUTO 1 % (0-2); EOSINOPHILS ABSOLUTE AUTO 0.22 K/mm3 (0.00-0.68); EOSINOPHILS PERCENT AUTO 3 % (0-6); Hematocrit 40.1 % (37.0-53.0); Hemoglobin 12.8 g/dL (13.5-17.5); IMMATURE GRAN ABSOLUTE AUTO 0.02 K/mm3 (0.00-0.10); IMMATURE GRAN PERCENT AUTO 0 % (0-1); LYMPHOCYTES ABSOLUTE AUTO 1.41 K/mm3 (0.84-5.20); LYMPHOCYTES PERCENT AUTO 20 % (21-46); MONOCYTES ABSOLUTE AUTO 0.89 K/mm3 (0.16-1.47); MONOCYTES PERCENT AUTO 13 % (4-13); Mean Corpuscular HGB 28.4 pg (26.0-34.0); Mean Corpuscular HGB Conc 31.9 g/dL (31.5-36.5); Mean Corpuscular Volume 89 fL (80-100); Mean Platelet Volume 11.5 fL (9.1-12.4); NEUTROPHILS ABSOLUTE AUTO 4.31 K/mm3 (1.96-9.15); NEUTROPHILS PERCENT AUTO 62 % (41-73); Platelet Count 167 K/mm3 (150-400); RDW Coefficient Variation 12.8 % (11.7-14.2); Red Blood Cell Count 4.51 M/mm3 (4.30-5.90); White Blood Cell Count 6.91 K/mm3 (4.00-11.30)
[2021-10-29 15:15] LABS: Albumin, Blood 3.8 g/dL (3.4-5.0); Albumin/Globulin Ratio 0.9 (0.8-1.8); Bilirubin, Direct 0.1 mg/dL (0.0-0.3); Bilirubin, Indirect 0.3 mg/dL (0.1-0.7); Bilirubin, Total 0.4 mg/dL (0.1-1.0); Bun/Creatinine Ratio 25.5 (12.0-20.0); Calcium, Blood 10.3 mg/dL (8.5-10.1); Creatinine, Blood 1.41 mg/dL (0.60-1.20); Globulin, Blood 4.3 g/dL (2.2-4.0); Phosphorus, Blood 3.6 mg/dL (2.5-4.9); Potassium, Blood 3.6 mmol/L (3.5-5.5); Total Protein, Blood 8.1 g/dL (6.4-8.2)
[2021-11-02 10:10] LABS: BK QUANTITATION PCR Negative (Negative)
== END | disposition home or self-care (01) ==
LOC: LAB SHORT 11:39 → LAB FUT 02-13 15:25
PROVIDERS: Internal Medicine Nephrology
DX: N18.30 Chronic kidney disease, stage 3 unspecified (principal); D63.1 Anemia in chronic kidney disease; N25.81 Secondary hyperparathyroidism of renal origin; E55.9 Vitamin D deficiency, unspecified; E78.00 Pure hypercholesterolemia, unspecified; R76.9 Abnormal immunological finding in serum, unspecified; R94.5 Abnormal results of liver function studies; R94.6 Abnormal results of thyroid function studies
CPT/HCPCS: 36415; 80053; 80197; 82248; 84100; 85025

== ENCOUNTER 2021-11-03 00:59 | Day surgery (SDC) | payer MEDICARE | END 2021-11-03 23:36 | disposition home or self-care (01) | LOC: WOUND 00:59 | DX: E11.621 Type 2 diabetes mellitus with foot ulcer (principal); L97.422 Non-pressure chronic ulcer of left heel and midfoot with fat layer exposed; L89.890 Pressure ulcer of other site, unstageable; E11.42 Type 2 diabetes mellitus with diabetic polyneuropathy; E11.51 Type 2 diabetes mellitus with diabetic peripheral angiopathy without gangrene; I87.2 Venous insufficiency (chronic) (peripheral) ==

== ENCOUNTER 2021-11-10 03:07 | Day surgery (SDC) | payer MEDICARE, OTHER | END 2021-11-10 22:59 | disposition home or self-care (01) | LOC: WOUND 03:07 | DX: E11.621 Type 2 diabetes mellitus with foot ulcer (principal); L97.422 Non-pressure chronic ulcer of left heel and midfoot with fat layer exposed; E11.42 Type 2 diabetes mellitus with diabetic polyneuropathy; R93.6 Abnormal findings on diagnostic imaging of limbs; I87.2 Venous insufficiency (chronic) (peripheral); E11.51 Type 2 diabetes mellitus with diabetic peripheral angiopathy without gangrene; M79.672 Pain in left foot; L89.890 Pressure ulcer of other site, unstageable | CPT/HCPCS: A9270; G0463 ==

== ENCOUNTER 2021-11-17 01:43 | Day surgery (SDC) | payer MEDICARE | END 2021-11-17 22:46 | disposition home or self-care (01) | LOC: WOUND 01:43 | DX: E11.621 Type 2 diabetes mellitus with foot ulcer (principal); L97.422 Non-pressure chronic ulcer of left heel and midfoot with fat layer exposed; L89.890 Pressure ulcer of other site, unstageable; I87.2 Venous insufficiency (chronic) (peripheral); E11.51 Type 2 diabetes mellitus with diabetic peripheral angiopathy without gangrene; R93.6 Abnormal findings on diagnostic imaging of limbs | CPT/HCPCS: G0463 ==

== ENCOUNTER 2021-12-01 01:21 | Day surgery (SDC) | payer MEDICARE | END 2021-12-01 22:53 | disposition home or self-care (01) | LOC: WOUND 01:21 | DX: E11.621 Type 2 diabetes mellitus with foot ulcer (principal); E11.42 Type 2 diabetes mellitus with diabetic polyneuropathy; L97.529 Non-pressure chronic ulcer of other part of left foot with unspecified severity; L89.899 Pressure ulcer of other site, unspecified stage; R93.6 Abnormal findings on diagnostic imaging of limbs; I87.2 Venous insufficiency (chronic) (peripheral); M79.672 Pain in left foot | CPT/HCPCS: G0463 ==

== ENCOUNTER → 2022-02-14 | Outpatient (CLI) | payer MEDICARE ==
[2022-02-14 14:54] LABS: BASOPHILS ABSOLUTE AUTO 0.01 K/mm3 (0.00-0.23); BASOPHILS PERCENT AUTO 0 % (0-2); EOSINOPHILS PERCENT AUTO 0 % (0-6); Hematocrit 39.5 % (37.0-53.0); Hemoglobin 12.9 g/dL (13.5-17.5); IMMATURE GRAN ABSOLUTE AUTO 0.01 K/mm3 (0.00-0.10); IMMATURE GRAN PERCENT AUTO 0 % (0-1); LYMPHOCYTES ABSOLUTE AUTO 0.44 K/mm3 (0.84-5.20); LYMPHOCYTES PERCENT AUTO 12 % (21-46); MONOCYTES ABSOLUTE AUTO 0.97 K/mm3 (0.16-1.47); MONOCYTES PERCENT AUTO 26 % (4-13); Mean Corpuscular HGB 29.1 pg (26.0-34.0); Mean Corpuscular HGB Conc 32.7 g/dL (31.5-36.5); Mean Corpuscular Volume 89 fL (80-100); Mean Platelet Volume 11.2 fL (9.1-12.4); NEUTROPHILS ABSOLUTE AUTO 2.36 K/mm3 (1.96-9.15); NEUTROPHILS PERCENT AUTO 62 % (41-73); Platelet Count 121 K/mm3 (150-400); RDW Standard Deviation 42.6 fL (35.1-46.3); Red Blood Cell Count 4.43 M/mm3 (4.30-5.90); White Blood Cell Count 3.79 K/mm3 (4.00-11.30)
[2022-02-14 14:56] LABS: Albumin, Blood 3.8 g/dL (3.4-5.0); Bilirubin, Total 0.6 mg/dL (0.1-1.0); Bun/Creatinine Ratio 19.7 (12.0-20.0); Calcium, Blood 9.2 mg/dL (8.5-10.1); Creatinine, Blood 1.57 mg/dL (0.60-1.20); Globulin, Blood 3.9 g/dL (2.2-4.0); Potassium, Blood 3.8 mmol/L (3.5-5.5); Total Protein, Blood 7.7 g/dL (6.4-8.2)
== END ==
LOC: LAB SHORT 12:27 → LAB 12:27
PROVIDERS: General Practice
DX: R11.2 Nausea with vomiting, unspecified (principal)
CPT/HCPCS: 80053; 85025

== ENCOUNTER → 2022-02-25 | Outpatient (CLI) | payer MEDICARE | END | disposition home or self-care (01) | LOC: LAB 16:28 → LAB SHORT 16:28 | DX: N39.0 Urinary tract infection, site not specified (principal) | CPT/HCPCS: 87086 ==

== ENCOUNTER 2022-08-05 00:23 | Day surgery (SDC) | payer MEDICARE | END 2022-08-05 23:07 | disposition home or self-care (01) | LOC: WOUND 00:23 | DX: E11.621 Type 2 diabetes mellitus with foot ulcer (principal); L97.522 Non-pressure chronic ulcer of other part of left foot with fat layer exposed; T87.89 Other complications of amputation stump; E11.42 Type 2 diabetes mellitus with diabetic polyneuropathy; I87.2 Venous insufficiency (chronic) (peripheral); E11.51 Type 2 diabetes mellitus with diabetic peripheral angiopathy without gangrene; Z94.0 Kidney transplant status | CPT/HCPCS: A9270; G0463 ==

== ENCOUNTER 2022-08-12 03:48 | Day surgery (SDC) | payer MEDICARE | END 2022-08-12 23:05 | disposition home or self-care (01) | LOC: WOUND 03:48 | DX: E11.621 Type 2 diabetes mellitus with foot ulcer (principal); I87.2 Venous insufficiency (chronic) (peripheral); L97.522 Non-pressure chronic ulcer of other part of left foot with fat layer exposed; E11.42 Type 2 diabetes mellitus with diabetic polyneuropathy; R93.6 Abnormal findings on diagnostic imaging of limbs; E11.51 Type 2 diabetes mellitus with diabetic peripheral angiopathy without gangrene; Z94.0 Kidney transplant status | CPT/HCPCS: A9270 ==

== ENCOUNTER 2022-08-19 04:54 | Day surgery (SDC) | payer MEDICARE | END 2022-08-19 23:01 | disposition home or self-care (01) | LOC: WOUND 04:54 | DX: E11.621 Type 2 diabetes mellitus with foot ulcer (principal); L97.822 Non-pressure chronic ulcer of other part of left lower leg with fat layer exposed; I89.0 Lymphedema, not elsewhere classified; E11.42 Type 2 diabetes mellitus with diabetic polyneuropathy; R93.6 Abnormal findings on diagnostic imaging of limbs; I87.2 Venous insufficiency (chronic) (peripheral); E11.51 Type 2 diabetes mellitus with diabetic peripheral angiopathy without gangrene; Z94.0 Kidney transplant status | CPT/HCPCS: A9270; G0463 ==

== ENCOUNTER 2022-08-26 01:33 | Day surgery (SDC) | payer MEDICARE | END 2022-08-26 22:52 | disposition home or self-care (01) | LOC: WOUND 01:33 | DX: E11.621 Type 2 diabetes mellitus with foot ulcer (principal); L97.512 Non-pressure chronic ulcer of other part of right foot with fat layer exposed; E11.42 Type 2 diabetes mellitus with diabetic polyneuropathy; I87.2 Venous insufficiency (chronic) (peripheral); E11.51 Type 2 diabetes mellitus with diabetic peripheral angiopathy without gangrene; Z94.0 Kidney transplant status | CPT/HCPCS: G0463 ==

== ENCOUNTER 2022-09-09 00:35 | Day surgery (SDC) | payer MEDICARE | END 2022-09-09 22:51 | disposition home or self-care (01) | LOC: WOUND 00:35 | DX: E11.621 Type 2 diabetes mellitus with foot ulcer (principal); L97.522 Non-pressure chronic ulcer of other part of left foot with fat layer exposed; E11.42 Type 2 diabetes mellitus with diabetic polyneuropathy; I87.2 Venous insufficiency (chronic) (peripheral); E11.51 Type 2 diabetes mellitus with diabetic peripheral angiopathy without gangrene; Z94.0 Kidney transplant status | CPT/HCPCS: A9270; G0463 ==

== ENCOUNTER 2022-09-16 08:00 | Day surgery (SDC) | payer MEDICARE | END 2022-09-16 23:59 | disposition home or self-care (01) | LOC: WOUND 08:00 | DX: E11.621 Type 2 diabetes mellitus with foot ulcer (principal); L97.522 Non-pressure chronic ulcer of other part of left foot with fat layer exposed; I89.0 Lymphedema, not elsewhere classified; R93.6 Abnormal findings on diagnostic imaging of limbs; E11.42 Type 2 diabetes mellitus with diabetic polyneuropathy; I87.2 Venous insufficiency (chronic) (peripheral); E11.51 Type 2 diabetes mellitus with diabetic peripheral angiopathy without gangrene; Z94.0 Kidney transplant status | CPT/HCPCS: A9270 ==

== ENCOUNTER 2022-09-23 00:30 | Day surgery (SDC) | payer MEDICARE | END 2022-09-23 23:28 | disposition home or self-care (01) | LOC: WOUND 00:30 | DX: E11.621 Type 2 diabetes mellitus with foot ulcer (principal); L97.522 Non-pressure chronic ulcer of other part of left foot with fat layer exposed; L97.412 Non-pressure chronic ulcer of right heel and midfoot with fat layer exposed; L97.512 Non-pressure chronic ulcer of other part of right foot with fat layer exposed; E11.42 Type 2 diabetes mellitus with diabetic polyneuropathy; E11.51 Type 2 diabetes mellitus with diabetic peripheral angiopathy without gangrene; I87.2 Venous insufficiency (chronic) (peripheral); R93.6 Abnormal findings on diagnostic imaging of limbs; M79.672 Pain in left foot; Z94.0 Kidney transplant status ==

== ENCOUNTER 2022-09-30 00:41 | Day surgery (SDC) | payer MEDICARE | END 2022-09-30 22:45 | disposition home or self-care (01) | LOC: WOUND 00:41 | DX: E11.621 Type 2 diabetes mellitus with foot ulcer (principal); L97.522 Non-pressure chronic ulcer of other part of left foot with fat layer exposed; I89.0 Lymphedema, not elsewhere classified; L97.512 Non-pressure chronic ulcer of other part of right foot with fat layer exposed; E11.42 Type 2 diabetes mellitus with diabetic polyneuropathy; I87.2 Venous insufficiency (chronic) (peripheral); E11.51 Type 2 diabetes mellitus with diabetic peripheral angiopathy without gangrene; Z94.0 Kidney transplant status | CPT/HCPCS: A9270; G0463 ==

== ENCOUNTER 2022-10-07 02:38 | Day surgery (SDC) | payer MEDICARE | END 2022-10-07 23:15 | disposition home or self-care (01) | LOC: WOUND 02:38 | DX: E11.621 Type 2 diabetes mellitus with foot ulcer (principal); L97.522 Non-pressure chronic ulcer of other part of left foot with fat layer exposed; I89.0 Lymphedema, not elsewhere classified; L97.512 Non-pressure chronic ulcer of other part of right foot with fat layer exposed; E11.42 Type 2 diabetes mellitus with diabetic polyneuropathy; E11.51 Type 2 diabetes mellitus with diabetic peripheral angiopathy without gangrene; Z94.0 Kidney transplant status | CPT/HCPCS: A9270; G0463 ==

== ENCOUNTER 2022-10-14 02:22 | Day surgery (SDC) | payer MEDICARE | END 2022-10-14 22:36 | disposition home or self-care (01) | LOC: WOUND 02:22 | DX: E11.621 Type 2 diabetes mellitus with foot ulcer (principal); L97.412 Non-pressure chronic ulcer of right heel and midfoot with fat layer exposed; R93.6 Abnormal findings on diagnostic imaging of limbs; E11.42 Type 2 diabetes mellitus with diabetic polyneuropathy; I87.2 Venous insufficiency (chronic) (peripheral); E11.51 Type 2 diabetes mellitus with diabetic peripheral angiopathy without gangrene; Z94.0 Kidney transplant status; M79.672 Pain in left foot | CPT/HCPCS: A9270; G0463 ==

== ENCOUNTER 2022-10-21 00:49 | Day surgery (SDC) | payer MEDICARE | END 2022-10-21 23:01 | disposition home or self-care (01) | LOC: WOUND 00:49 | DX: E11.621 Type 2 diabetes mellitus with foot ulcer (principal); L97.512 Non-pressure chronic ulcer of other part of right foot with fat layer exposed; L97.412 Non-pressure chronic ulcer of right heel and midfoot with fat layer exposed; L97.528 Non-pressure chronic ulcer of other part of left foot with other specified severity; E11.42 Type 2 diabetes mellitus with diabetic polyneuropathy; R93.6 Abnormal findings on diagnostic imaging of limbs; I87.2 Venous insufficiency (chronic) (peripheral); E11.51 Type 2 diabetes mellitus with diabetic peripheral angiopathy without gangrene; M79.672 Pain in left foot; Z94.0 Kidney transplant status | CPT/HCPCS: G0463 ==

== ENCOUNTER 2022-10-28 03:33 | Day surgery (SDC) | payer MEDICARE | END 2022-10-28 22:59 | disposition home or self-care (01) | LOC: WOUND 03:33 | DX: E11.621 Type 2 diabetes mellitus with foot ulcer (principal); R93.6 Abnormal findings on diagnostic imaging of limbs; E11.42 Type 2 diabetes mellitus with diabetic polyneuropathy; I87.2 Venous insufficiency (chronic) (peripheral); E11.51 Type 2 diabetes mellitus with diabetic peripheral angiopathy without gangrene; Z94.0 Kidney transplant status | CPT/HCPCS: G0463 ==

== ENCOUNTER 2022-11-04 02:16 | Day surgery (SDC) | payer MEDICARE | END 2022-11-04 22:59 | disposition home or self-care (01) | LOC: WOUND 02:16 | DX: E11.621 Type 2 diabetes mellitus with foot ulcer (principal); I89.0 Lymphedema, not elsewhere classified; L97.512 Non-pressure chronic ulcer of other part of right foot with fat layer exposed; L97.522 Non-pressure chronic ulcer of other part of left foot with fat layer exposed; E11.42 Type 2 diabetes mellitus with diabetic polyneuropathy; I87.2 Venous insufficiency (chronic) (peripheral); E11.51 Type 2 diabetes mellitus with diabetic peripheral angiopathy without gangrene; Z94.0 Kidney transplant status | CPT/HCPCS: A9270; G0463 ==

== ENCOUNTER 2022-11-11 02:35 | Day surgery (SDC) | payer MEDICARE | END 2022-11-11 22:42 | disposition home or self-care (01) | LOC: WOUND 02:35 | DX: E11.621 Type 2 diabetes mellitus with foot ulcer (principal); L97.522 Non-pressure chronic ulcer of other part of left foot with fat layer exposed; I89.0 Lymphedema, not elsewhere classified; E11.42 Type 2 diabetes mellitus with diabetic polyneuropathy; E11.51 Type 2 diabetes mellitus with diabetic peripheral angiopathy without gangrene; Z94.0 Kidney transplant status; I87.2 Venous insufficiency (chronic) (peripheral) | CPT/HCPCS: A9270; G0463 ==

== ENCOUNTER 2022-11-18 01:16 | Day surgery (SDC) | payer MEDICARE, OTHER | END 2022-11-18 23:00 | disposition home or self-care (01) | LOC: WOUND 01:16 | DX: E11.621 Type 2 diabetes mellitus with foot ulcer (principal); L97.522 Non-pressure chronic ulcer of other part of left foot with fat layer exposed; S91.101A Unspecified open wound of right great toe without damage to nail, initial encounter; R93.6 Abnormal findings on diagnostic imaging of limbs; E11.42 Type 2 diabetes mellitus with diabetic polyneuropathy; I87.2 Venous insufficiency (chronic) (peripheral); I73.9 Peripheral vascular disease, unspecified; Z94.0 Kidney transplant status; X58.XXXA Exposure to other specified factors, initial encounter | CPT/HCPCS: A9270; G0463 ==

== ENCOUNTER 2022-11-25 02:33 | Day surgery (SDC) | payer MEDICARE | END 2022-11-25 23:29 | disposition home or self-care (01) | LOC: WOUND 02:33 | DX: E11.621 Type 2 diabetes mellitus with foot ulcer (principal); L97.522 Non-pressure chronic ulcer of other part of left foot with fat layer exposed; S90.421A Blister (nonthermal), right great toe, initial encounter; X58.XXXA Exposure to other specified factors, initial encounter; R93.6 Abnormal findings on diagnostic imaging of limbs; E11.42 Type 2 diabetes mellitus with diabetic polyneuropathy; I87.2 Venous insufficiency (chronic) (peripheral); E11.51 Type 2 diabetes mellitus with diabetic peripheral angiopathy without gangrene; Z94.0 Kidney transplant status | CPT/HCPCS: A9270 ==

== ENCOUNTER 2022-12-02 03:11 | Day surgery (SDC) | payer MEDICARE | END 2022-12-02 22:38 | disposition home or self-care (01) | LOC: WOUND 03:11 | DX: E11.621 Type 2 diabetes mellitus with foot ulcer (principal); L97.522 Non-pressure chronic ulcer of other part of left foot with fat layer exposed; I89.0 Lymphedema, not elsewhere classified; R93.6 Abnormal findings on diagnostic imaging of limbs; E11.42 Type 2 diabetes mellitus with diabetic polyneuropathy; I87.2 Venous insufficiency (chronic) (peripheral); E11.51 Type 2 diabetes mellitus with diabetic peripheral angiopathy without gangrene; Z94.0 Kidney transplant status | CPT/HCPCS: G0463 ==

== ENCOUNTER 2022-12-16 00:25 | Day surgery (SDC) | payer MEDICARE | END 2022-12-16 22:51 | disposition home or self-care (01) | LOC: WOUND 00:25 | DX: E11.621 Type 2 diabetes mellitus with foot ulcer (principal); L97.529 Non-pressure chronic ulcer of other part of left foot with unspecified severity; R93.6 Abnormal findings on diagnostic imaging of limbs; E11.42 Type 2 diabetes mellitus with diabetic polyneuropathy; I87.2 Venous insufficiency (chronic) (peripheral); E11.51 Type 2 diabetes mellitus with diabetic peripheral angiopathy without gangrene; Z94.0 Kidney transplant status | CPT/HCPCS: G0463 ==

== ENCOUNTER 2022-12-23 00:44 | Day surgery (SDC) | payer MEDICARE | END 2022-12-23 22:43 | disposition home or self-care (01) | LOC: WOUND 00:44 | DX: E11.621 Type 2 diabetes mellitus with foot ulcer (principal); L97.522 Non-pressure chronic ulcer of other part of left foot with fat layer exposed; I89.0 Lymphedema, not elsewhere classified; R93.6 Abnormal findings on diagnostic imaging of limbs; E11.42 Type 2 diabetes mellitus with diabetic polyneuropathy; I87.2 Venous insufficiency (chronic) (peripheral); E11.51 Type 2 diabetes mellitus with diabetic peripheral angiopathy without gangrene; Z94.0 Kidney transplant status | CPT/HCPCS: G0463 ==

== ENCOUNTER 2022-12-30 03:40 | Day surgery (SDC) | payer MEDICARE | END 2022-12-30 22:51 | disposition home or self-care (01) | LOC: WOUND 03:40 | DX: E11.621 Type 2 diabetes mellitus with foot ulcer (principal); R93.6 Abnormal findings on diagnostic imaging of limbs; E11.42 Type 2 diabetes mellitus with diabetic polyneuropathy; I87.2 Venous insufficiency (chronic) (peripheral); E11.51 Type 2 diabetes mellitus with diabetic peripheral angiopathy without gangrene; Z94.0 Kidney transplant status | CPT/HCPCS: G0463 ==

== ENCOUNTER 2023-07-03 12:30 | Emergency (ER) | payer MEDICARE ==
[~2023-07-03] VITALS: Ht 180.3 cm; Wt 97.5 kg
[2023-07-03 16:25] VITALS: BP 140/76
== END 2023-07-03 16:25 | disposition home or self-care (01) ==
LOC: ER 12:30
DX: S22.41XA Multiple fractures of ribs, right side, initial encounter for closed fracture (principal); W10.1XXA Fall (on)(from) sidewalk curb, initial encounter; E11.9 Type 2 diabetes mellitus without complications; I10 Essential (primary) hypertension; Z87.891 Personal history of nicotine dependence; Z88.8 Allergy status to other drugs, medicaments and biological substances; Z88.7 Allergy status to serum and vaccine; Z79.899 Other long term (current) drug therapy; Z79.01 Long term (current) use of anticoagulants; Z79.4 Long term (current) use of insulin
CPT/HCPCS: 70450; 71101; 99284-25

== ENCOUNTER → 2023-07-26 | Outpatient (CLI) | payer MEDICARE ==
[2023-07-27 19:26] LABS: Microalbumin, Urine Quant. 20.2 mg/L (0.000-20.000)
== END ==
LOC: LAB 13:30 → LAB SHORT 13:30
PROVIDERS: Internal Medicine Nephrology
DX: N25.81 Secondary hyperparathyroidism of renal origin (principal); D50.9 Iron deficiency anemia, unspecified; E55.9 Vitamin D deficiency, unspecified; E78.00 Pure hypercholesterolemia, unspecified; N40.1 Benign prostatic hyperplasia with lower urinary tract symptoms; R76.9 Abnormal immunological finding in serum, unspecified; R94.5 Abnormal results of liver function studies; R94.6 Abnormal results of thyroid function studies; D51.8 Other vitamin B12 deficiency anemias; D52.8 Other folate deficiency anemias; Z94.0 Kidney transplant status
CPT/HCPCS: 82043; 84156; 84300

== ENCOUNTER → 2024-03-22 | Outpatient (CLI) | payer MEDICARE ==
[~2024-03-22] MED LIST changes: +Percocet 5-3251 EACH PO
== END ==
LOC: LAB 16:08 → LAB SHORT 16:08
DX: N39.0 Urinary tract infection, site not specified (principal)
CPT/HCPCS: 87086

== ENCOUNTER → 2025-04-18 | Outpatient (CLI) | payer MEDICARE ==
[2025-04-21 11:09] LABS: 6-ACETYLMORPHINE, URN, QUANT <10 ng/mL; CODEINE, URN, QUANT <20 ng/mL; HYDROCODONE, URN, QUANT 774 ng/mL; HYDROMORPHONE, URN, QUANT <20 ng/mL; MORPHINE, URN, QUANT <20 ng/mL; NORHYDROCODONE, URN, QUANT 817 ng/mL; NOROXYCODONE, URN, QUANT <20 ng/mL; NOROXYMORPHONE, URN, QUANT <20 ng/mL; OXYCODONE, URN, QUANT <20 ng/mL; OXYMORPHONE, URN, QUANT <20 ng/mL
== END ==
LOC: LAB SHORT 14:53 → LAB 14:53
PROVIDERS: Family Medicine
DX: Z51.81 Encounter for therapeutic drug level monitoring (principal); Z79.899 Other long term (current) drug therapy
CPT/HCPCS: G0480